=== PATIENT | female | born 1970 ===

== ENCOUNTER → 2019-08-18 | Outpatient (CLI) | payer BC ==
--- NOTE | 2019-08-18 11:19 | KCIC ---
MRI of the lumbar spine without contrast 08/18/2019 CLINICAL HISTORY: Chronic low back pain. TECHNIQUE: Unenhanced T1-weighted and T2-weighted sagittal and axial and inversion recovery sagittal images of the lumbar spine were obtained. FINDINGS: Minimal S-shaped curvature of the thoracolumbar spine is seen. Degenerative signal changes are seen involving the L3-4, L4-5 and L5-S1 discs. Degenerative signal changes are seen within the marrow surrounding these discs. Loss of height of the L5-S1 disc is noted. Hemangiomas are seen scattered throughout the lumbar vertebra. These measure 5 mm to 1.5 centimeters in size. The conus medullaris is normal morphology, position, and signal characteristics. At the T12-L1 disc space there is a mild generalized disc bulge. Superimposed on this disc bulge is a left paracentral focal disc herniation. This measures 6 mm in AP diameter. Degenerative changes are seen involving the facet joints bilaterally. These findings result in mild left greater than right central spinal canal stenosis without significant cord impingement. No neural foraminal stenosis is seen. At the L1-2 and L2-3 disc spaces there are minimal generalized disc bulges. Degenerative changes are seen involving the facet joints bilaterally. These findings do not result in significant central spinal canal or neural foraminal stenosis. At the L3-4 disc space there is a mild generalized disc bulge. Degenerative changes are seen involving the facet joints bilaterally. There is mild ligamentum flavum hypertrophy bilaterally. These findings when combined result in mild central spinal canal stenosis. No neural foraminal stenosis is seen. At the L4-5 disc space there is a mild generalized disc bulge. Superimposed on this disc bulge is a focal central disc protrusion. This measures 2 mm in AP diameter. Degenerative changes are seen involving the facet joints bilaterally. There is mild ligamentum flavum hypertrophy bilaterally. These findings when combined do not result in significant central spinal canal or neural foraminal stenosis. At the L5-S1 disc space there is a mild generalized disc bulge. Superimposed on this disc bulge is a central/left paracentral focal disc herniation. This extrudes inferiorly and laterally to the left. It measures 5 mm in AP diameter. Degenerative changes are seen involving the facet joints bilaterally. These findings result in mild left-sided central spinal canal stenosis. The disc herniation abuts and mildly displaces the left S1 nerve root posteriorly within the left aspect of the central spinal canal. No neural foraminal stenosis is seen. IMPRESSION: The changes of degenerative disc disease are seen throughout the lower thoracic and throughout the lumbar spine. These findings result in mild left greater than right central spinal canal stenosis at T12-L1, mild central spinal canal stenosis at L3-4 and mild left-sided central spinal canal stenosis at L5-S1. No neural foraminal stenosis is seen. Electronically signed by: Lb Carlos MD (08/18/2019 11:16 AM) [facility]
== END | disposition home or self-care (01) ==
LOC: KCIC MRI 09:16
PROVIDERS: ATTEND Family Medicine
DX: M51.27 Other intervertebral disc displacement, lumbosacral region (principal); M51.24 Other intervertebral disc displacement, thoracic region; M51.34 Other intervertebral disc degeneration, thoracic region; M48.05 Spinal stenosis, thoracolumbar region; G89.29 Other chronic pain; M48.08 Spinal stenosis, sacral and sacrococcygeal region; Z90.49 Acquired absence of other specified parts of digestive tract; Z90.710 Acquired absence of both cervix and uterus
CPT/HCPCS: 72148

== ENCOUNTER → 2019-08-26 | Outpatient (CLI) | payer BC ==
--- NOTE | 2019-08-27 10:58 | KCIC ---
LUMBAR SPINE WO CONTRAST History: Lumbar radiculopathy. Technique: Multiplanar, multi sequential MR imaging was performed of the lumbar spine. Comparison: August 18, 2019 Findings: Normal vertebral body height and alignment. No fracture. Scattered vertebral body hemangiomas, unchanged. Conus terminates at the normal location. No evidence of nerve root clumping. T12-L1: Left paracentral disc extrusion contributing to mild left canal narrowing and cord flattening. No neuroforaminal narrowing. L1-L2: No canal or neuroforaminal narrowing. L2-L3: No canal or neuroforaminal narrowing. L3-L4: Small posterior disc bulge. Mild facet arthropathy. No canal or neuroforaminal narrowing. L4-L5: Small posterior disc bulge with central annular fissure. Super post central disc protrusion. Mild facet arthropathy. No canal or neuroforaminal narrowing. L5-S1: Broad-based posterior disc bulge with superimposed left subarticular disc protrusion contacting the descending left S1 nerve root within the subarticular recess with mild displacement, unchanged. No canal narrowing. Moderate facet arthropathy. No neuroforaminal narrowing. When compared the prior examination the findings are unchanged. Impression: 1. Left L5-S1 subarticular disc protrusion contacting and mildly displaced left descending S1 nerve root. Correlate for radiculopathy. 2. Stable T12-L1 left central disc extrusion contributing to mild canal narrowing and cord flattening. 3. Additional mild lumbar spondylosis. Electronically signed by: Everton Rabago DO (08/27/2019 10:55 AM) [facility]
== END | disposition home or self-care (01) ==
LOC: KCIC MRI 09:03
PROVIDERS: ATTEND Physician Assistant Surgical
DX: M51.17 Intervertebral disc disorders with radiculopathy, lumbosacral region (principal); M47.27 Other spondylosis with radiculopathy, lumbosacral region; M12.88 Other specific arthropathies, not elsewhere classified, other specified site
CPT/HCPCS: 72148

== ENCOUNTER → 2020-03-15 | Outpatient (CLI) | payer BC ==
--- NOTE | 2020-03-16 11:32 | SLEEP ---
DATE OF STUDY: 03/15/2020 HOME SLEEP STUDY ATTENDING PHYSICIAN: Delisa Pichardo MD The patient is a 48-year-old who weighs 310 pounds with a BMI of 53. The patient underwent home sleep study performed by [facility]. Total recording time was 200 minutes. During the night study, the patient had no central or obstructive apneas. There were 3 mixed apneas and 34 hypopneas. The patient's AHI was 11.1 per hour. Nocturnal oximetry study revealed an average oxygen saturation of 86% with lowest of 78%. 196 minutes were spent in oxygen saturation of less than 90% and another 21 minutes with saturation less than 85%. Mean heart rate 87 beats per minute with a maximum 113 beats per minute. IMPRESSION: 1. Mild obstructive sleep apnea at an AHI of 11.1 per hour. 2. Sustained pattern of nocturnal hypoxia suggesting hypoventilation. RECOMMENDATIONS: 1. If the patient is clinically symptomatic or has comorbid conditions, then the patient would benefit from treatment of sleep apnea with either CPAP versus oral appliance. 2. If the patient does not undergo CPAP titration, then the patient would be eligible for 1 liter of oxygen at nighttime. 3. Weight loss is strongly advised. 4. Avoid B[employer] depressants. 5. Cautioned regarding driving until symptoms of sleep apnea have resolved with above recommendations. BRADY COVINGTON MD DR: REYNA/lianne JOB#: [id number] / [id number] [facility] DELISA PICHARDO MD
== END ==
LOC: RT 09:06
PROVIDERS: ATTEND Family Medicine
DX: G47.33 Obstructive sleep apnea (adult) (pediatric) (principal); G47.34 Idiopathic sleep related nonobstructive alveolar hypoventilation
CPT/HCPCS: G0399

== ENCOUNTER → 2020-03-28 | Outpatient (CLI) | payer BC ==
--- NOTE | 2020-03-29 18:34 | SLEEP ---
DATE OF STUDY: 03/28/2020 OBJECTIVE: The patient is a 49-year-old female previously study with a home examination on 03/15/2020 showing apnea-hypopnea index of 11.1 events per hour. The present study is for the purposes of CPAP titration Height 5 feet 4 inches, weight 210 pounds, body mass index 53. Sabael sleep score 9. INTERPRETATION: Sleep architecture is characterized by sleep efficiency of 86% across the 7.3 hours of recording time. Stage volumes are appropriate for age. Sleep onset latency is 30 minutes. Respiratory monitoring shows a total of 43 events for an apnea-hypopnea index of 6.9 events per hour of sleep. The minimum oxygen saturation is 74%. The patient is started on CPAP during the study and does well on the below-listed settings. Periodic limb movements of sleep and cardiac arrhythmias are not observed except for some sinus tachycardia. IMPRESSION: Successful CPAP titration using 12 cm, Respironics DreamWear nasal cushion with chin strap, small size. RECOMMENDATIONS: 1. The patient should be established on this CPAP setting. 2. She should avoid sedatives and alcohol and pursue weight loss. Thank you for letting us help with the patient's care. CAM BROWN MD DR: ANG/lianne JOB#: [id number] / [id number] BRADY Blair MD, TERRY MD
== END | disposition home or self-care (01) ==
LOC: RT 18:53
PROVIDERS: ATTEND Internal Medicine Critical Care Medicine
DX: G47.33 Obstructive sleep apnea (adult) (pediatric) (principal)
CPT/HCPCS: 95810